=== PATIENT | male | born 1940 | race Caucasian/White ===

== ENCOUNTER → 2016-09-05 13:19 | Outpatient (CLI) | payer MEDICARE, BC ==
[2016-05-27 10:40] VITALS: BMI 29.6
[~2016-09-05 13:19] MED LIST: BAYER CHEWABLE81 MG PO; CORDARONE200 MG PO; COZAAR50 MG PO; GLUCOSAMINE & C1 CAP PO; K-DUR20 MEQ PO; LASIX40 MG PO; NAPROSYN500 MG PO; NORVASC5 MG PO; PLAVIX75 MG PO; PRAVASTATIN SOD10 MG PO; ULTRAM50 MG PO
== END | disposition home or self-care (01) ==
LOC: D.MRI 13:19
DX: M54.16 Radiculopathy, lumbar region (principal)

== ENCOUNTER → 2017-12-09 12:40 | Outpatient (CLI) | payer MEDICARE, BC ==
[2016-05-27 10:40] VITALS: BMI 29.6
== END | disposition home or self-care (01) ==
LOC: D.US 12:40
DX: I65.23 Occlusion and stenosis of bilateral carotid arteries (principal)

== ENCOUNTER 2018-02-22 09:34 | Emergency (ER) | payer MEDICARE, BC ==
[~2018-02-22] VITALS: Ht 177.8 cm; Wt 92.3 kg
[2018-02-22 09:53] VITALS: Ht 177.8 cm; Wt 92.3 kg
[2018-02-22] MEDS ORDERED: KEFLEX500 MG PO (11:35)
[2018-02-22 11:51] VITALS: BP 132/80
== END 2018-02-22 11:51 | disposition home or self-care (01) ==
LOC: D.ER 09:34
DX: S01.311A Laceration without foreign body of right ear, initial encounter (principal); W22.8XXA Striking against or struck by other objects, initial encounter; Y93.89 Activity, other specified; Y92.019 Unspecified place in single-family (private) house as the place of occurrence of the external cause; Z79.01 Long term (current) use of anticoagulants; Z86.73 Personal history of transient ischemic attack (TIA), and cerebral infarction without residual deficits; I10 Essential (primary) hypertension; Z95.1 Presence of aortocoronary bypass graft

== ENCOUNTER 2018-02-23 10:03 | Day surgery (SDC) | payer MEDICARE, BC ==
[~2018-02-23] VITALS: Ht 177.8 cm; Wt 92.1 kg
--- NOTE | ~2018-02-23 | OP ---
PATIENT NAME: MEÑO INFANTE MEDICAL RECORD: [id number] :44 LOCATION:D.[facility] ADMISSION DATE: SURGEON: JORDAN BARON MD DATE OF OPERATION: 02/23/2018 PREOPERATIVE DIAGNOSES: Partial right ear avulsion and right scalp laceration. POSTOPERATIVE DIAGNOSES: Partial right ear avulsion and right scalp laceration. PROCEDURE: 1. Layered repair of 3 cm scalp laceration. 2. Extensive debridement, cartilage resection and flap reconstruction of the right superior helix. SURGEON: Jordan Baron MD ANESTHESIA: General LMA. COMPLICATIONS: None. DISPOSITION: Recovery stable. DESCRIPTION OF PROCEDURE: He was brought to the operating room and placed in supine position. Head was turned to the left. The right ear was prepped and draped in usual sterile fashion. There was a right scalp laceration almost parallel to mastoid incision type laceration. This was cleaned up. This was closed with interrupted subcutaneous 4-0 Vicryl. Skin was closed with 6-0 plain gut. The ear was then addressed. He had over a centimeter of the upper ear removed, creating a laceration about 5 cm long. There was a lot of exposed cartilage sticking up. The cartilage had to be trimmed down to a rounded shape to create a smaller partially rounded top of the ear, but had to be resected enough the skin could close over it, basically there was a big amount of soft tissue anteriorly and posteriorly that had to be trimmed down to remove the dog ear type bumps there. Then, the cartilage was basically already dissected free from the soft tissue anteriorly and posteriorly due to basically a large pinch injury that I cut it off. Tissue was manipulated and folded over using interrupted horizontal mattress sutures to pull the soft tissue from the posterior ear over on to the anterior ear creating a small amount of helix and covering the cartilage tips of flap to anterosuperiorly created from removing those dog ears allowed the helix to be rotated in towards the center and those were closed into the wound as well. The wound was closed with interrupted 6-0 Prolene superficially with the 5-0 Prolene reapproximating all the wound edges. He was given a gram of Ancef intraoperatively and mupirocin ointment was applied. He was awakened, extubated and transferred to recovery in good condition. No complications. TRANSINT:[id number] Voice Confirmation ID: [id number] DOCUMENT ID: [id number] OPERATIVE REPORT [id number] MEÑO INFANTE ERIC MD at 1711 CC: [id number] DICTATION DATE: 02/23/18 1444 COMPUTER HARDWARE ENGINEER: 02/23/18 1549 [facility] [place] 02/23/18 [place] [id number] [place] [id number]
[~2018-02-23 10:03] MED LIST changes: +KEFLEX500 MG PO
[2018-02-23 11:03] VITALS: BP 165/88; Ht 177.8 cm; Wt 92.1 kg
[2018-02-23 11:55] LABS: BASOPHILS 0.2 % (0-2); EOSINOPHILS 1.3 % (0-7); HEMATOCRIT 42.4 % (42.0-54.0); HEMOGLOBIN 14.8 g/dL (13.5-17.5); IMMATURE GRANULOCYTES 0.2 % (0-5); LYMPHOCYTES 24.3 % (15-50); MCH 33.4 pg (26.0-34.0); MCHC 34.9 g/dL (31.0-37.0); MCV 95.7 fL (80.0-100.0); MEAN PLATELET VOLUME 9.6 fL (7.4-10.4); MONOCYTES 8.6 % (2-11); NEUTROPHILS 65.4 % (40-80); PLATELET COUNT 153 10x3/uL (130-400); RBC 4.43 10x6/uL (4.20-6.10); RDW 12.4 % (11.5-14.5); WBC 5.9 10x3/uL (4.8-10.8)
[2018-02-23 12:06] LABS: CALC OSMOLALITY 283 mosm/kg (275-300); CALCIUM 8.8 mg/dL (8.5-10.1); CARBON DIOXIDE 31.3 mmol/L (21.0-32.0); CHLORIDE - SERUM 106 mmol/L (98-107); CREATININE - SERUM 0.8 mg/dL (0.6-1.3); GLUCOSE 106 mg/dL (74-106); POTASSIUM - SERUM 3.7 mmol/L (3.5-5.1); SODIUM 142 mmol/L (136-145); UREA NITROGEN 14 mg/dL (7-18); eGFR NON AFRICAN AMERICAN > 90 mL/min (90-120)
== END 2018-02-23 16:15 | disposition home or self-care (01) ==
LOC: D.OPS 10:03
PROVIDERS: Anesthesiology
DX: S08.121A Partial traumatic amputation of right ear, initial encounter (principal); S01.01XA Laceration without foreign body of scalp, initial encounter; X58.XXXA Exposure to other specified factors, initial encounter

== ENCOUNTER → 2018-08-24 15:03 | Outpatient (CLI) | payer MEDICARE, BC ==
[2018-02-23 11:03] VITALS: BMI 29.1
== END | disposition home or self-care (01) ==
LOC: D.CT 15:03
DX: R26.89 Other abnormalities of gait and mobility (principal)

== ENCOUNTER → 2018-11-30 12:50 | Outpatient (CLI) | payer MEDICARE, BC ==
[2018-02-23 11:03] VITALS: BMI 29.1
== END | disposition home or self-care (01) ==
LOC: D.US 12:50
PROVIDERS: ATTEND Internal Medicine Cardiovascular Disease
DX: I65.23 Occlusion and stenosis of bilateral carotid arteries (principal)

== ENCOUNTER → 2018-12-01 10:10 | Outpatient (CLI) | payer MEDICARE, BC ==
[2018-02-23 11:03] VITALS: BMI 29.1
--- NOTE | ~2018-12-01 | EC ---
PATIENT:MEÑO INFANTE DATE OF SERVICE: 12/01/18 SEX: M MEDICAL RECORD: [id number] DATE OF : 44 LOCATION:D.[facility] AGE OF PATIENT: 78 ADMISSION DATE: 12/01/18 REFERRING PHYSICIAN: INTERPRETING PHYSICIAN: JOVANY BARRETO MD ECHOCARDIOGRAM REPORT ECHO CHARGES 4 ECHO COMPLETE Date: 12/01/18 CLINICAL DIAGNOSIS: CAD HX OF HTN/CABG/ R ECA ECHOCARDIOGRAPHIC MEASUREMENTS (adult normal given) AC root (d.<3.7cm) 3.8 cm LV Septum d (<1.2 cm> 1.2 cm Valve Excursion 2.0 cm LV Septum (systole) 1.6 cm Left Atria (s.<4.0cm> 4.1 cm LVPW d(<1.2cm) 1.6 cm RV (d.<2.3cm) 3.6 cm LVPW (sytole) 2.0 cm LV diastole(<5.6CM) 4.8 cm MV E-F(>70mm/sec) cm LV systole 3.2 cm LVOT Diameter 1.8 cm MV exc.(>10mm) 1.3 cm Est.ejection fraction (50-75%) % DOPPLER: LVIT cm/sec A 105 cm/sec E 49.0 cm/sec LA cm/sec RVSP 23 mmHg LVOT 92 cm/sec AOP1/2T m/s Asc. 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 Garcia TAPE# PACS Pericardial Effusion N DATE OF SERVICE: 12/01/2018 Adequate 2-D echo, color-flow and spectral Doppler, and M-mode. Borderline LVH. LV internal dimensions are normal. Wall motion is normal. EF is greater than or equal to 55%. Aortic valve sclerosis without stenosis by Doppler interrogation. Left atrium is at upper limits of normal, mildly dilated at 4.1 cm. Mitral valve shows no prolapse. Mild MR. Right-sided chambers are grossly normal. Mild TR. ECHOCARDIOGRAM REPORT [id number] MEÑO INFANTE TRANSINT:[id number] Voice Confirmation ID: [id number] DOCUMENT ID: [id number] JOVANY BARRETO MD CC: [id number] DICTATION DATE: 12/01/18 154 FLATWORK FINISHER HAND: 12/01/18 1753 [facility] [address] [place] [id number]
== END | disposition home or self-care (01) ==
LOC: D.HCCARDIO 10:10
PROVIDERS: ATTEND Internal Medicine Interventional Cardiology
DX: I25.10 Atherosclerotic heart disease of native coronary artery without angina pectoris (principal)

== ENCOUNTER → 2019-12-02 12:20 | Outpatient (CLI) | payer MEDICARE, BC ==
[2018-02-23 11:03] VITALS: BMI 29.1
== END | disposition home or self-care (01) ==
LOC: D.US 12:20
PROVIDERS: ATTEND Internal Medicine Cardiovascular Disease
DX: I65.23 Occlusion and stenosis of bilateral carotid arteries (principal)